=== PATIENT | male | born 1975 | race Caucasian/White ===

== ENCOUNTER → 2021-03-20 | Outpatient (CLI) | payer OTHER | LOC: EXRD 03-19 11:00 | DX: N50.82 Scrotal pain (principal) | CPT/HCPCS: 76870 ==

== ENCOUNTER 2022-06-12 16:17 | Emergency (ER) | payer OTHER ==
[2022-06-12] MEDS ORDERED: IBUPROFEN600 MG PO (17:43)
== END 2022-06-12 18:22 | disposition home or self-care (01) ==
LOC: ER1 16:17
DX: M25.511 Pain in right shoulder (principal); I10 Essential (primary) hypertension
CPT/HCPCS: 73030; 99283